=== PATIENT | female | born 2000 | race Hispanic/Latino ===

== ENCOUNTER 2022-04-26 12:12 | Emergency (ER) | payer MEDICAID ==
[~2022-04-26] VITALS: Ht 157.5 cm; Wt 91.2 kg
[~2022-04-26 12:12] MED LIST: PREN-202 PO
[2022-04-26 12:18] VITALS: BP 138/86
[2022-04-26] MEDS ORDERED: CEPH500B PO (12:47)
[2022-04-26] MEDS ORDERED: ACET-66 PO (12:47)
[2022-04-26] MEDS ORDERED: ONDANSETRON 4MG INJ IVP ONE (13:00)
[2022-04-26] MEDS ORDERED: KETOROLAC 30MG VIAL (30MG/ML) IVP ONE (13:00)
[2022-04-26] MEDS ORDERED: 0.9%NACL 1000ML 1,000 ML IV ONE (13:00)
== END 2022-04-26 12:56 | disposition home or self-care (01) ==
LOC: EDH 12:12
DX: T63.441A Toxic effect of venom of bees, accidental (unintentional), initial encounter (principal); L03.114 Cellulitis of left upper limb; Y92.89 Other specified places as the place of occurrence of the external cause

== ENCOUNTER 2022-08-02 20:36 | Emergency (ER) | payer MEDICAID ==
[~2022-08-02] VITALS: Ht 157.5 cm; Wt 88.9 kg
[~2022-08-02 20:36] MED LIST changes: +ACET-66 PO; +CEPH500B PO
[2022-08-02 21:43] VITALS: BP 121/72
== END 2022-08-02 21:47 | disposition home or self-care (01) ==
LOC: EDH 20:36
DX: H92.02 Otalgia, left ear (principal); J02.9 Acute pharyngitis, unspecified; Z79.899 Other long term (current) drug therapy; Z88.8 Allergy status to other drugs, medicaments and biological substances
CPT/HCPCS: 99282